=== PATIENT | male | born 1965 | race Caucasian/White ===

== ENCOUNTER 2017-06-15 22:02 | Inpatient (IN) | payer MEDICAID ==
[~2017-06-15] VITALS: Ht 188 cm; Wt 90.7 kg
[2017-06-15] MEDS ORDERED: ASPI-605 PO (22:18)
[2017-06-15] MEDS ORDERED: LISI40TA4 PO (22:18)
[2017-06-15] MEDS ORDERED: INSU100C SUBCUT (22:18)
[2017-06-15] MEDS ORDERED: SITA100T PO (22:18)
[2017-06-15] MEDS ORDERED: INSU100V7 SQ (22:18)
[2017-06-15 23:33] LABS: ALANINE AMINOTRANSFERASE 22 U/L (16-63); ALKALINE PHOSPHATASE 137 U/L (50-136); ASPARTATE AMINOTRANSFERASE 13 U/L (15-37); BILIRUBIN,DIRECT < 0.1 mg/dL (0.0-0.2); BILIRUBIN,TOTAL 0.2 mg/dL (0.2-1.0); CARBON DIOXIDE 28 mmol/L (21-32); CHLORIDE 97 mmol/L (98-107); CREATININE 3.4 mg/dL (0.6-1.3); POTASSIUM 4.7 mmol/L (3.5-5.1); TOTAL PROTEIN, SERUM 7.1 g/dL (6.4-8.2); UREA NITROGEN, BLOOD 41 mg/dL (7-18)
[2017-06-15 23:40] LABS: GLUCOSE 530 mg/dL (74-106)
[2017-06-16 00:20] LABS: HEMATOCRIT 38.1 % (40-50); HEMOGLOBIN 12.6 G/DL (14.0-18.0); MEAN CORPUSCULAR HEMOGLOBIN 27.3 UUG (27.0-31.0); MEAN CORPUSCULAR HGB CONC 33 g/dL (32.0-37.0); MEAN CORPUSCULAR VOLUME 82.9 FL (82.0-92.0); WHITE BLOOD COUNT (AUTO) 7.5 K/UL (4.0-11.2)
[2017-06-16 00:21] LABS: BASOPHILS % (AUTO) 0.6 % (0.0-2.0); EOSINOPHILS # (AUTO) 0.3 K/uL (0.0-0.7); EOSINOPHILS % (AUTO) 4.5 % (0.0-7.0); LYMPHOCYTES # (AUTO) 1.5 K/UL (0.8-4.8); LYMPHOCYTES % (AUTO) 20.7 % (20.5-51.5); MONOCYTES # (AUTO) 0.5 K/UL (0.1-1.30); MONOCYTES % (AUTO) 6.3 % (0.0-11.0); NEUTROPHILS # (AUTO) 5.1 K/UL (1.8-8.9); NEUTROPHILS % (AUTO) 67.9 % (38.5-71.5); PLATELET COUNT (AUTO) 308 K/UL (150-450)
[2017-06-16 01:25] VITALS: BP 137/78
--- NOTE | 2017-06-16 01:27 | NUR ---
Pt. admitted to [facility], under care of Kristan Wooten [place]ongs List completed
--- NOTE | 2017-06-16 02:30 | NUR ---
PATIENT HAS STAT LAB WORKS, BUT REFUSED LAB DRAW. NOTIFIED.
[2017-06-16 04:00] VITALS: BP 142/85
--- NOTE | 2017-06-16 05:03 | NUR ---
PATIENT SLEPT MOST OF THE REST OF THE NIGHT, NO SOB NO CHEST PAIN, R FOOT ELEVATED WITH PILLOW, DRESSING INTACT, CONT ON IV ABX FOR OSTEOMYELETIS OF R FOOT. CALL LIGHT WTIHIN REACH.
[2017-06-16 07:22] LABS: IRON, SERUM 40 ug/dL (50-175)
--- NOTE | 2017-06-16 08:08 | NUR ---
RECEIVED IN BED WITH EYES CLOSED BUT IS AROUSES EASILY ON ROUNDS IV ANTIBIOTICS REMAINS IN PROGRESS WITH NO ADVERSE OR ALLERGIC REACTIONS AT THIS TIME WILL CONTINUE TO OBSERVE.
--- NOTE | 2017-06-16 11:00 | NUR ---
PATIENT SEEN AND EXAMINED BY JUAN M GORDON WITH NEW ORDERS AND NOTED.
[2017-06-16 11:07] LABS: CREATININE 2.8 mg/dL (0.6-1.3)
[2017-06-16 11:15] VITALS: BP 122/79
--- NOTE | 2017-06-16 12:14 | NUR ---
WOUND CARE CONSULT: PT NOT SEEN YET FOR SKIN ASSESSMENT DUE TO PT HAVING PROCEDURE AT THIS TIME. PHOTO DOCUMENTATION SHOWS RT PLANTAR FOOT ULCER. DPM CONSULTED BY N.P. WILL SEE PT PT CONDITION PERMITS. CURRENT YADIEL SCORE IS 20.
[2017-06-16 12:25] LABS: BASOPHILS % (AUTO) 0.9 % (0.0-2.0); EOSINOPHILS % (AUTO) 4.6 % (0.0-7.0); HEMATOCRIT 36.6 % (40-50); HEMOGLOBIN 11.9 G/DL (14.0-18.0); LYMPHOCYTES % (AUTO) 24.5 % (20.5-51.5); MEAN CORPUSCULAR HEMOGLOBIN 27.3 UUG (27.0-31.0); MEAN CORPUSCULAR HGB CONC 33 g/dL (32.0-37.0); MEAN CORPUSCULAR VOLUME 83.6 FL (82.0-92.0); PLATELET COUNT (AUTO) 290 K/UL (150-450); RED BLOOD CELL COUNT(AUTO) 4.38 MIL/UL (4.7-6.1); WHITE BLOOD COUNT (AUTO) 6.9 K/UL (4.0-11.2)
[2017-06-16 12:26] LABS: BASOPHILS # (AUTO) 0.1 K/uL (0.0-8.0); EOSINOPHILS # (AUTO) 0.3 K/uL (0.0-0.7); LYMPHOCYTES # (AUTO) 1.7 K/UL (0.8-4.8); MONOCYTES # (AUTO) 0.5 K/UL (0.1-1.30); NEUTROPHILS # (AUTO) 4.4 K/UL (1.8-8.9)
--- NOTE | 2017-06-16 12:36 | NUR ---
ECHO COMPLETED AND ITS 50% EF WITH ABNORMAL WALL MOTION RAGHAV GORDON AWARE AND STATED OKAY THE SCRAP CRUSHER WILL READ THE ECHO LATER.
--- NOTE | 2017-06-16 12:56 | NUR ---
WOUND CARE: PT SEEN FOR RT PLANTAR FOOT ULCER. RECOMMENDATIONS MADE AND DISCUSSED WITH NURSING STAFF. PT TO BE SEEN BY DEGREE CLERK. WILL SEE PRN. OLSON IN AGREEMENT WITH PLAN OF CARE. Addendum: 06/16/17 at 1257 by LEE ANN NICHOLE RN Amended: Links added. Addendum: 06/16/17 at 1258 by LEE ANN NICHOLE RN PT REFUSED FULL SKIN ASSESSMENT OF BACK AND BUTTOCKS. YADIEL SCORE CURRENTLY 20.
--- NOTE | 2017-06-16 14:25 | NUR ---
PATIENT INFORMED ME THAT HIS CAR KALLI HARRIS IS HERE IN THE PARKING LOT STRUCTURE ON THE THIRD LEVEL SO I CALLED SECURITY AND NOTIFIED THEM SPOKE WITH [employer] STATED OKAY WILL MONITOR THE CAR FOR SAFETY.
--- NOTE | 2017-06-16 15:07 | NUR ---
PATIENT INFORMED ME THAT HE WAS NOT ALLERGIC TO CODEINE STATED THAT HE TOOK CODEINE WITH [employer] AND GOT AN ALLERGIC REACTION BUT HE HAS SINCE TAKEN CODEINE WITH NO REACTIONS CALLED JUAN M GORDON AND NOTIFIED HER WITH NEW ORDERS AND NOTED.
[2017-06-16 15:09] VITALS: BP 136/84
--- NOTE | 2017-06-16 15:51 | NUR ---
DR COLLAZO HERE TO SEE PATIENT AND HE DID A BEDSIDE INCISION DRAINAGE AND DEBRIDEMENT AND SPECIMEN COLLECTED AND SENT TO THE LAB ORDERED.
--- NOTE | 2017-06-16 16:55 | NUR ---
Clinical pharmacy note-Vancomycin dosing per pharmacy Subjective: To start Vancomycin dosing on this 52 year old patient for osteomyelitis of foot Objective: BUN 35 Scr 2.8 WBC 6.9 Temp 98.8 Assessment/Plan: Since renal function is decreased ,will dose by fall off random level for now. Vancomycin 1 gram x1 was given today at 0432. Vancomycin random is on order tomorrow am on am labs. Will follow the level for further dosing.
--- NOTE | 2017-06-16 18:14 | NUR ---
MID LINE INSERTED TO HIS LEFT UPPER ARM GAUGE 18 AND TOLERATED PROCEDURE WELL.
[2017-06-16 19:30] VITALS: BP 108/64
--- NOTE | 2017-06-17 05:18 | NUR ---
nsg: no acute distress ntoed. denies discomfort. all needs attended. cont to monitor.
[2017-06-17 06:51] VITALS: BP 117/76
[2017-06-17 06:58] LABS: BASOPHILS # (AUTO) 0.1 K/uL (0.0-8.0); BASOPHILS % (AUTO) 1.5 % (0.0-2.0); EOSINOPHILS # (AUTO) 0.3 K/uL (0.0-0.7); EOSINOPHILS % (AUTO) 5.9 % (0.0-7.0); HEMATOCRIT 39.1 % (40-50); HEMOGLOBIN 12.6 G/DL (14.0-18.0); LYMPHOCYTES # (AUTO) 1.2 K/UL (0.8-4.8); LYMPHOCYTES % (AUTO) 19.8 % (20.5-51.5); MEAN CORPUSCULAR HEMOGLOBIN 26.9 UUG (27.0-31.0); MEAN CORPUSCULAR HGB CONC 32 g/dL (32.0-37.0); MEAN CORPUSCULAR VOLUME 83.3 FL (82.0-92.0); MONOCYTES # (AUTO) 0.3 K/UL (0.1-1.30); MONOCYTES % (AUTO) 5.1 % (0.0-11.0); NEUTROPHILS # (AUTO) 3.9 K/UL (1.8-8.9); NEUTROPHILS % (AUTO) 67.7 % (38.5-71.5); PLATELET COUNT (AUTO) 325 K/UL (150-450); WHITE BLOOD COUNT (AUTO) 5.8 K/UL (4.0-11.2)
[2017-06-17 07:11] LABS: BILIRUBIN,TOTAL 0.2 mg/dL (0.2-1.0); CREATININE 2.3 mg/dL (0.6-1.3); MAGNESIUM 1.6 mg/dL (1.8-2.4); PHOSPHOROUS 3.2 mg/dL (2.5-4.9); POTASSIUM 4.9 mmol/L (3.5-5.1); VANCOMYCIN,RANDOM 7.4 ug/mL (18.0-26.0)
--- NOTE | 2017-06-17 08:00 | NUR ---
awake alert cooperate well no sob or pain EAT BREAKFAST WITH GOOD APPETITE ON FALL PRECAUTION CALL LIGHT WITHIN REACH
--- NOTE | 2017-06-17 10:45 | NUR ---
DSG CHANGE RT FOOT ORDER STATE PAIN MED HELP TO RELIEF PAIN WELL
[2017-06-17 11:00] VITALS: BP_SYST 121; BP_SYST 144; BP_DIAS 80; BP_DIAS 86
[2017-06-17 15:00] VITALS: BP 111/75
--- NOTE | 2017-06-17 17:30 | NUR ---
SAME CONDITION NO SOB ,PAIN UNDER CONTROL SAFETY MEASURE PROVIDED CALL LIGHT WITHIN REACH
--- NOTE | 2017-06-17 20:00 | NUR ---
AWAKE ALERT X3 COMPLAINT OF RIGHT FOOT PAIN. MORPHINE 1MG GIVEN.RIGHT FOOT DRESSINGS DRY AND INTACT. HS SNACKS GIVEN.RESTING COMFORTABLY.
--- NOTE | 2017-06-17 20:00 | NUR ---
AWAKE,ALERT XI SITTER AT BEDSIDE COOPERATIVE,INNO ACUTE DISTRESS,RESTING COMFORTABLY. Addendum: 06/17/17 at 2040 by MEIR HASSAN RN DISREGARD LAST NOTE,DIFFERENT PT,
[2017-06-17 20:34] VITALS: BP 131/82
[2017-06-18 04:04] LABS: *BILIRUBIN,URIN NEGATIVE (NEGATIVE); *BLOOD, URINE NEGATIVE (NEGATIVE); *CLARITY,URINE CLEAR (CLEAR); *COLOR,URINE YELLOW (YELLOW); *KETONES,URINE NEGATIVE (NEGATIVE); *PROTEIN,URINE 1+ (NEGATIVE); *UROBILINOGEN,URINE 0.2 E.U./dl (NORMAL); LEUKOCYTE ESTERASE ,URINE NEGATIVE (NEGATIVE); NITRITE, URINE NEGATIVE (NEGATIVE); UGLUCOSE NEGATIVE (NEGATIVE)
[2017-06-18 04:13] LABS: BACTERIA,URINE NONE SEEN /HPF (NONE SEEN); RBC,URINE NONE SEEN /HPF (0-3); SQUAMOUS EPITHELIAL CELL,UR FEW /HPF (NONE SEEN); WBC,URINE 0-3 /HPF (0-3)
[2017-06-18 05:26] VITALS: BP 131/82
--- NOTE | 2017-06-18 05:29 | NUR ---
SLEPT MOST OF THE NITE. IN NO ACUTE DISTRESS.
--- NOTE | 2017-06-18 07:20 | NUR ---
Received patient from overnight associate, patient in bed sleeping, no evidence of distress noted, bed in low position side rails up x2.
[2017-06-18 08:05] LABS: CREATININE 2.4 mg/dL (0.6-1.3); MAGNESIUM 1.7 mg/dL (1.8-2.4); POTASSIUM 4.9 mmol/L (3.5-5.1)
[2017-06-18 12:00] VITALS: BP 108/76
--- NOTE | 2017-06-18 19:00 | NUR ---
RECEIVED PATIENT IN BED ALERT ORIENTED, R FOOT WITH DRESSING INTACT, CONT ON PAIN MANAGEMENT, CALL LIGHT WITHIN REACH.
--- NOTE | 2017-06-18 19:47 | NUR ---
Gave report to police shift commander nurse, patient is in bed, side rails up x2, bed in low position, patient ambulates independently with walker to rest room as needed. Dressing change performed today on right foot. Patient has tolerated meals, and blood sugar was in normal range. Patient has intermittent pain in right foot resolved with pain medicine. Pain medication last given at 330 pm, unable to scan at the time administered as computer lost power, scanned at later time in the day.
[2017-06-18 20:30] VITALS: BP 160/102
[2017-06-19 04:00] VITALS: BP 115/74
--- NOTE | 2017-06-19 04:18 | NUR ---
PATIENT SLEPT MOST OF THE NIGHT, NO SOB NO CHEST PAIN, DRESSING INTACT ON R FOOT, CONT ON PAIN MANAGEMENT, CALL LIGHT WITHIN REACH.
[2017-06-19 07:08] LABS: CREATININE 2.2 mg/dL (0.6-1.3); MAGNESIUM 1.6 mg/dL (1.8-2.4); POTASSIUM 4.5 mmol/L (3.5-5.1)
--- NOTE | 2017-06-19 07:30 | NUR ---
RECEIVED REPORT FROM CADDYMASTER NURSE, PATIENT IN BED AWAKE, AWAITING BREAKFAST, BED IN LOW POSITION, SIDE RAILS UP X2, BED ALARM ON. NO EVIDENCE OF DISTRESS NOTED AT THIS TIME.
[2017-06-19 11:53] VITALS: BP 164/98
[2017-06-19 15:57] VITALS: BP 120/67
--- NOTE | 2017-06-19 18:42 | NUR ---
PATIENT IS IN BED, AWAKE, NEW DRESSING TO RIGHT FOOT APPLIED AFTER CLEANSING. PATIENT IS IN NO DISTRESS AT THIS TIME AND REPORTS PAIN AT A MANAGEABLE LEVEL. BED IS IN LOW POSITION, SIDE RAILS UP X2.
--- NOTE | 2017-06-19 19:45 | NUR ---
RECEIVED REPORT FROM DAY SHIFT NURSE. VISITED PATIENT. PATIENT IS AO, RESTING IN BED. DRESSING IN RIGHT FOOT INTACT. PATIENT VERBALIZED THAT HE IS HUNGRY AND SANDWICH PROVIDED.
[2017-06-19 20:00] VITALS: BP 158/103
[2017-06-19 21:09] VITALS: BP 142/88
[2017-06-20 06:19] VITALS: BP 136/72
[2017-06-20 06:30] LABS: CREATININE 2.1 mg/dL (0.6-1.3); MAGNESIUM 1.7 mg/dL (1.8-2.4); POTASSIUM 4.2 mmol/L (3.5-5.1)
--- NOTE | 2017-06-20 06:30 | NUR ---
PATIENT IS AWAKE AND ORIENTED. COMPLAINS OF SHARP PAIN 8/10 ON PAIN SCALE IN RIGHT FOOT. PAIN MEDICATION PROVIDED. PAIN REASSESSMENT PROVIDED AND PATIENT'S PAIN IN TOLERABLE LEVEL. PATIENT DOES NOT APPEAR TO BE IN DISTRESS. BLOOD SUGAR TAKEN. PATIENT'S BP ELEVATED BUT OTHER VSS. IV FLUIDS RUNNING AT 75 ML/HR. WOUND DRESSING ON RIGHT FOOT WAS TAKEN OFF BY PATIENT DURING THE NIGHT BUT REWRAPPED IN THE MORNING BY NURSE. HYDROGEL USED FOR WOUND CARE BEFORE RIGHT FOOT WAS REWRAPPED. PATIENT APPEARS TO BE COMFORTABLE. PATIENT IS COOPERATIVE. STABLE CONDITION. NO APPARENT DISTRESS NOTED.
[2017-06-20 11:23] VITALS: BP 137/81
[2017-06-20] MEDS ORDERED: LINE600T PO (12:17)
[2017-06-20] MEDS ORDERED: HYDR-3326 PO (12:20)
--- NOTE | 2017-06-20 15:00 | NUR ---
JUAN M Daniels IN TO SEE PT. AND GIVE HOME INSTRUCTIONS. DRESSING TO RIGHT FOOT CHANGED PER ORDER. HOME INSTRUCTIONS REVIEWED WITH PT...PT. PREFERS TO SCHEDULE HIS OWN FOLLOW-UP APPTS. FOR HIS PCP AND WOUND CARE CLINIC. 1530 DISCHARGED TO SELF VIA W/C. IV D/C'D. V/S STABLE.
== END 2017-06-20 13:30 | disposition home or self-care (01) | DRG 317 ==
LOC: ER 22:03 → MED 06-16 00:15
PROVIDERS: ADMIT Internal Medicine; ATTEND Internal Medicine
PROC: 0KBV0ZZ Excision of Right Foot Muscle, Open Approach (ICD-10-PCS; principal; 2017-06-16)
PROC: 05H633Z Insertion of Infusion Device into Left Subclavian Vein, Percutaneous Approach (ICD-10-PCS; principal; 2017-06-16)
DX: E11.69 Type 2 diabetes mellitus with other specified complication (principal); M86.671 Other chronic osteomyelitis, right ankle and foot; N17.0 Acute kidney failure with tubular necrosis; R65.11 Systemic inflammatory response syndrome (SIRS) of non-infectious origin with acute organ dysfunction; E11.621 Type 2 diabetes mellitus with foot ulcer; E44.0 Moderate protein-calorie malnutrition; E11.21 Type 2 diabetes mellitus with diabetic nephropathy; E87.1 Hypo-osmolality and hyponatremia; E11.65 Type 2 diabetes mellitus with hyperglycemia; L97.519 Non-pressure chronic ulcer of other part of right foot with unspecified severity; M86.60 Other chronic osteomyelitis, unspecified site; D72.829 Elevated white blood cell count, unspecified; E11.22 Type 2 diabetes mellitus with diabetic chronic kidney disease; N18.9 Chronic kidney disease, unspecified; I12.9 Hypertensive chronic kidney disease with stage 1 through stage 4 chronic kidney disease, or unspecified chronic kidney disease; Z79.4 Long term (current) use of insulin; E88.09 Other disorders of plasma-protein metabolism, not elsewhere classified; Z91.19 Patient's noncompliance with other medical treatment and regimen; Z79.899 Other long term (current) drug therapy; Z68.25 Body mass index [BMI] 25.0-25.9, adult
CPT/HCPCS: 36415; 71010; 73630; 76770; 83550; 83605; 83735; 84100; 85025; 85610; 85730; 87040; 87070; 87077; 87086; 93005; 93307; A4663; J1815; J2270; J2405; J3370; J3475; J3490; J7030; J7040; J7060